=== PATIENT | female | born 1955 | race Caucasian/White ===

== ENCOUNTER 2016-12-22 18:05 | Emergency (ER) | payer OTHER ==
[2016-12-22 18:18] VITALS: RESP 16; TEMP 99.3
--- NOTE | 2016-12-22 18:19 | CPEKG ---
Heart Rate: 99 RR Interval: 606 P-R Interval: 136 QRSD Interval: 70 QT Interval: 320 QTC Interval: 411 P Otho: 48 QRS Otho: -49 T Wave Otho: 38 EKG Severity - ABNORMAL ECG - EKG Impression: SINUS RHYTHM EKG Impression: LEFT ANTERIOR FASCICULAR BLOCK Electronically Signed By: Todd Matthews 22-Dec-2016 21:05:00
--- NOTE | 2016-12-22 18:25 | EDPHY ---
H & P Time Seen by Provider: 12/22/16 18:06 HPI/ROS: Chief complaint. Syncope HPI. 61-year-old female, here by EMS, who has had headache and back pain for more than 2 weeks has had low energy for the last several days. She closed up the office today drove home. Due to fatigue and headache and back pain she stopped once on the way home. She did arrive home and the when out to see where the patient might be and found her lying on the sidewalk. She was awake. However she was dizzy and off balance. She had upper respiratory symptoms a week ago but no fever. She has had no cough or shortness of breath. She has had epigastric and left lower quadrant tenderness for more than 2 weeks. Today she feels like she was drinking a lot a water but not urinating. Her epigastric pain is not changed with breathing, movement, exertion, eating. She says slight blurry vision right eye for 2 weeks. She has had no recent injuries. No similar symptoms previously no focal weakness or paresthesias. EMS reported temperature of a 104 degrees ROS Constitutional. Weakness and fatigue Eyes. Blurry vision right eye for 2 weeks ENT. no sore throat, no nasal drainage Cardiovascular. no chest pain Respiratory. no shortness of breath, no cough Abdominal. Epigastric abdominal pain, no nausea/vomiting, no diarrhea . no problems urinating MS. no calf pain/swelling, no neck/back pain, no joint pain Skin. no rash Lymph. no swollen glands Neuro. Headache for 2 weeks and possible syncope today as well as dizziness and off balance Past Medical/Surgical History: Denies past medical history other than shoulder surgery Social History: , nonsmoker, no alcohol Smoking Status: Never smoked Physical Exam: General Appearance: Alert well-developed female no distress vital signs are stable Eyes: Pupils equal and round no pallor or injection. ENT, Mouth: Mucous membranes are moist. Respiratory: There are no retractions, lungs are clear to auscultation. Cardiovascular: Regular rate and rhythm. Gastrointestinal: Abdomen is soft and nontender, no masses, bowel sounds normal. Neurological: Awake and alert, sensory and motor exams grossly normal. Speech is normal. Cranial nerves are normal. There is no pronator drift. Finger-to- nose and [id number] are intact bilaterally Skin: Warm and dry, no rashes. Musculoskeletal: Neck is supple nontender. Extremities symmetrical, full range of motion. Psychiatric: Patient is oriented X 3, there is no agitation. Constitutional: Initial Vital Signs Temperature (C) 37.4 C 12/22/16 18:05 Heart Rate 98 12/22/16 18:05 Respiratory Rate 16 12/22/16 18:05 Blood Pressure 140/77 H 12/22/16 18:05 O2 Sat (%) 94 12/22/16 18:05 O2 Delivery Mode Room Air Allergies/Adverse Reactions: No Known Allergies Allergy (Unverified 12/22/16 18:13) Home Medications: Medication Instructions Recorded Cephalexin [Keflex (*)] 500 mg PO TID #21 cap 12/22/16 Multi-Vitamin Daily 12/22/16 VITAMIN B COMP W-C 12/22/16 VITAMIN D 12/22/16 Medical Decision Making - Diagnostics EKG Interpretation: EKG interpreted by me shows normal sinus rhythm with normal interval. There is left axis deviation left anterior fascicular block. QRS is unremarkable there is no significant ST elevation or depression. No arrhythmia. The rate is 99 Imaging Results: Imaging Impressions Head CT 12/22/16 18:45 Impression: 1. Normal CT brain without contrast. 2. No sinusitis. 3.Consider MRI of the brain without and with contrast enhancement, if there is continued clinical concern. Findings and recommendations discussed with Emergency Department physician, MAME MAGALLANES at 19:10 hour, 12/22/2016. Final report concurs with initial preliminary interpretation. Chest X-Ray 12/22/16 18:46 Impression: 1. No acute pulmonary disease. 2. Consider chest two views when the patient's medical condition permits. CT brain reviewed by me and discussed with Dr. Deal without contrast is normal Chest x-ray is normal Procedures: IV normal saline, monitor ED Course/Re-evaluation: Re-evaluation at 7:50 p.m.--stable and feeling better. The patient, her , and I discussed imaging and lab an EKG results. We discussed treatment plan including from criteria for return importance of follow-up and further evaluation. She expresses understanding and agreement I did offer the patient admission however she feels well and would prefer to be treated as an outpatient. She is encouraged to return at any point over the weekend for worsening symptoms Differential Diagnosis: A bit of an unusual story I do not really have explanation for her headache for greater than 2 weeks. I do not have a good reason why the patient had a syncopal or near syncopal episode and was lying on the sidewalk out in front of her house. I have considered arrhythmia, acute coronary syndrome, intracranial bleeding. The patient has a urinary tract infection. She is alert and oriented conversational. She has a normal neurologic exam. - Data Points Laboratory Results: Laboratory Results 12/22/16 18:10 12/22/16 18:10 12/22/16 12/22/16 12/22/16 19:05 18:10 18:10 WBC RBC Hgb Hct MCV MCH MCHC RDW Plt Count MPV Neut % (Auto) Lymph % (Auto) [place] % (Auto) Eos % (Auto) Baso % (Auto) Nucleat RBC Rel Count Absolute Neuts (auto) Absolute Lymphs (auto) Absolute Monos (auto) Absolute Eos (auto) Absolute Basos (auto) Absolute Nucleated RBC Immature Gran % Seg Neutrophils % Band Neutrophils % Lymphocytes % Monocytes % Metamyelocytes % Immature Gran # Absolute Seg Neuts Absolute Band Neuts Absolute Lymphocytes Absolute Monocytes Absolute Metamyelocyte RBC/WBC/PLT Morphology Platelet Estimate PT 14.0 SEC SEC (12.0-15.0) INR 1.09 (0.83-1.16) APTT 26.5 SEC SEC (23.0-38.0) Sodium 134 mEq/L mEq/L (134-144) Potassium 4.1 mEq/L mEq/L (3.5-5.2) Chloride 102 mEq/L mEq/L (97-110) Carbon Dioxide 19 mEq/l L mEq/l (22-31) Anion Gap 13 mEq/L mEq/L (8-16) BUN 16 mg/dL mg/dL (7-23) Creatinine 1.0 mg/dL mg/dL (0.6-1.0) Estimated GFR 57 Glucose 115 mg/dL H mg/dL (70-100) Calcium 9.7 mg/dL mg/dL (8.5-10.4) Troponin I < 0.012 ng/mL ng/mL (0-0.034) Lipase 35.0 IU/L IU/L (23-300) Urine Color YELLOW Urine Appearance HAZY Urine pH 7.0 (5.0-7.5) Ur Specific [place] 1.005 (1.002-1.030) Urine Protein NEGATIVE (NEGATIVE) Urine Ketones NEGATIVE (NEGATIVE) Urine Blood 2+ H (NEGATIVE) Urine Nitrate POSITIVE H (NEGATIVE) Urine Bilirubin NEGATIVE (NEGATIVE) Urine Urobilinogen NEGATIVE EU EU (0.2-1.0) Ur Leukocyte Esterase 3+ H (NEGATIVE) Urine RBC 3-5 /hpf H /hpf (0-3) Urine WBC 50-182 /hpf H /hpf (0-3) Ur Epithelial Cells NONE SEEN /lpf /lpf (NONE-1+) Urine Bacteria TRACE /hpf H /hpf (NONE SEEN) Urine Glucose NEGATIVE (NEGATIVE) Urine Opiates Screen NEGATIVE (NEGATIVE) Urine Barbiturates NEGATIVE (NEGATIVE) Ur Phencyclidine Scrn NEGATIVE (NEGATIVE) Ur Amphetamine Screen NEGATIVE (NEGATIVE) U Benzodiazepines Scrn NEGATIVE (NEGATIVE) Urine Cocaine Screen NEGATIVE (NEGATIVE) U Marijuana (THC) Screen NEGATIVE (NEGATIVE) 12/22/16 18:10 WBC 12.06 10^3/uL H 10^3/uL (3.80-9.50) RBC 4.29 10^6/uL 10^6/uL (4.18-5.33) Hgb 13.8 g/dL g/dL (12.6-16.3) Hct 38.7 % % (38.0-47.0) MCV 90.2 fL fL (81.5-99.8) MCH 32.2 pg pg (27.9-34.1) MCHC 35.7 g/dL g/dL (32.4-36.7) RDW 11.7 % % (11.5-15.2) Plt Count 341 10^3/uL 10^3/uL (150-400) MPV 9.8 fL fL (8.7-11.7) Neut % (Auto) 94.1 % H % (39.3-74.2) Lymph % (Auto) 4.9 % L % (15.0-45.0) [place] % (Auto) 0.5 % L % (4.5-13.0) Eos % (Auto) 0.0 % L % (0.6-7.6) Baso % (Auto) 0.3 % % (0.3-1.7) Nucleat RBC Rel Count 0.0 % % (0.0-0.2) Absolute Neuts (auto) 11.34 10^3/uL H 10^3/uL (1.70-6.50) Absolute Lymphs (auto) 0.59 10^3/uL L 10^3/uL (1.00-3.00) Absolute Monos (auto) 0.06 10^3/uL L 10^3/uL (0.30-0.80) Absolute Eos (auto) 0.00 10^3/uL L 10^3/uL (0.03-0.40) Absolute Basos (auto) 0.04 10^3/uL 10^3/uL (0.02-0.10) Absolute Nucleated RBC 0.00 10^3/uL 10^3/uL (0-0.01) Immature Gran % 0.2 % % (0.0-1.1) Seg Neutrophils % 77 % % Band Neutrophils % 16 % % Lymphocytes % 4 % % Monocytes % 1 % % Metamyelocytes % 2 % % Immature Gran # 0.03 10^3/uL 10^3/uL (0.00-0.10) Absolute Seg Neuts 9.29 10^/uL H 10^/uL (1.70-6.50) Absolute Band Neuts 1.93 10^3/uL H 10^3/uL (0.00-0.70) Absolute Lymphocytes 0.48 10^3/uL L 10^3/uL (1.00-3.00) Absolute Monocytes 0.12 10^3/uL L 10^3/uL (0.30-0.80) Absolute Metamyelocyte 0.24 10^3/mL H 10^3/mL (0.00-0.00) RBC/WBC/PLT Morphology NORMAL (NORMAL) Platelet Estimate ADEQUATE (ADEQ) PT INR APTT Sodium Potassium Chloride Carbon Dioxide Anion Gap BUN Creatinine Estimated GFR Glucose Calcium Troponin I Lipase Urine Color Urine Appearance Urine pH Ur Specific [place] Urine Protein Urine Ketones Urine Blood Urine Nitrate Urine Bilirubin Urine Urobilinogen Ur Leukocyte Esterase Urine RBC Urine WBC Ur Epithelial Cells Urine Bacteria Urine Glucose Urine Opiates Screen Urine Barbiturates Ur Phencyclidine Scrn Ur Amphetamine Screen U Benzodiazepines Scrn Urine Cocaine Screen U Marijuana (THC) Screen Medications Given: Discontinued Medications Sodium Chloride (Ns) 1,000 mls @ 0 mls/hr IV ONCE ONE; Wide Open PRN Reason: Protocol Stop: 12/22/16 18:47 Last Admin: 12/22/16 19:32 Dose: 1,000 mls Departure - Departure Disposition: Home, Routine, Self-Care Clinical Impression: Urinary tract infection Qualifiers: Urinary tract infection type: acute cystitis Hematuria presence: without hematuria Qualified Code(s): N30.00 - Acute cystitis without hematuria Condition: Good Instructions: Urinary Tract Infection in Women (ED) Additional Instructions: Drink plenty of fluids and stay hydrated. Start antibiotic prescription of cephalexin tomorrow. Return for worsening symptoms including further passing out episodes, worsening headache. Recheck in 2 days if not improving Referrals: Patient,NotPresent [Unknown] - As per Instructions Charles Gillette MD [Medical Doctor] - 2-3 days, if not improved Prescriptions: Cephalexin [Keflex (*)] 500 mg PO TID #21 cap
[2016-12-22] MEDS ORDERED: NS 1,000 ML IV ONE (18:46)
[2016-12-22 18:53] LABS: % IMMATURE GRANULYOCYTES 0.2 % (0.0-1.1); ABSOLUTE IMMATURE GRANULOCYTES 0.03 10^3/uL (0.00-0.10); ADD DIFF? NO; ADD MORPH? NO; ADD SCAN? YES; ATYPICAL LYMPHOCYTE FLAG 0 (0-99); FRAGMENT RBC FLAG 0 (0-99); HEMATOCRIT 38.7 % (38.0-47.0); HEMOGLOBIN 13.8 g/dL (12.6-16.3); LIPEMIA HEMOLYSIS FLAG 90 (0-99); MEAN CELL HEMOGLOBIN 32.2 pg (27.9-34.1); MEAN CELL HEMOGLOBIN CONCENTR. 35.7 g/dL (32.4-36.7); MEAN CELL VOLUME 90.2 fL (81.5-99.8); MEAN PLATELET VOLUME 9.8 fL (8.7-11.7); PLATELET CLUMPS FLAG 30 (0-99); PLATELET COUNT 341 10^3/uL (150-400); RED BLOOD CELL COUNT 4.29 10^6/uL (4.18-5.33); RED CELL DISTRIBUTION WIDTH 11.7 % (11.5-15.2)
[2016-12-22 18:54] LABS: LEFT SHIFT FLG 280 (0-99)
[2016-12-22 18:58] LABS: APTT 26.5 SEC (23.0-38.0); INR 1.09 (0.83-1.16)
[2016-12-22 19:06] LABS: ANION GAP 13 mEq/L (8-16); CALCIUM 9.7 mg/dL (8.5-10.4); CARBON DIOXIDE 19 mEq/l (22-31); CHLORIDE 102 mEq/L (97-110); GLOMERULAR FILTRATION RATE 57; GLUCOSE 115 mg/dL (70-100); POTASSIUM 4.1 mEq/L (3.5-5.2); SODIUM 134 mEq/L (134-144)
[2016-12-22 19:16] LABS: TROPONIN I < 0.012 ng/mL (0-0.034)
[2016-12-22 19:21] LABS: COLOR YELLOW; LEUKOCYTE ESTERASE,URINE 3+ (NEGATIVE); NITRITE,URINE POSITIVE (NEGATIVE)
[2016-12-22 19:27] LABS: BACTERIA TRACE /hpf (NONE SEEN); WBC,URINE 50-182 /hpf (0-3)
[2016-12-22 19:30] LABS: SCAN POSITIVE
[2016-12-22 19:33] LABS: PLATELET ESTIMATE ADEQUATE (ADEQ)
[2016-12-22 20:49] VITALS: BP 102/54; PULSE 99; O2SAT 93
== END 2016-12-22 20:49 | disposition home or self-care (01) ==
LOC: EDUNIT#
DX: N30.00 Acute cystitis without hematuria (principal); B96.89 Other specified bacterial agents as the cause of diseases classified elsewhere
CPT/HCPCS: 80305; 96365; J0696

== ENCOUNTER 2016-12-25 13:38 | Inpatient (IN) | payer OTHER ==
--- NOTE | 2016-12-25 13:45 | EDPHY ---
H & P Stated Complaint: pain has moved to rlq - Personal History Current Tetanus Diphtheria and Acellular Pertussis (TDAP): Yes - Medical/Surgical History Hx Asthma: No Hx Chronic Respiratory Disease: No Hx Diabetes: No Hx Cardiac Disease: No Hx Renal Disease: No Hx Cirrhosis: No Hx Alcoholism: No Hx HIV/AIDS: No Hx Splenectomy or Spleen Trauma: No Other PMH: l shoulder surgery - Social History Smoking Status: Never smoked Time Seen by Provider: 12/25/16 13:45 Constitutional: Initial Vital Signs Temperature (C) 37.2 C 12/25/16 13:42 Heart Rate 85 12/25/16 13:42 Respiratory Rate 16 12/25/16 13:42 Blood Pressure 152/92 H 12/25/16 13:42 O2 Sat (%) 97 12/25/16 13:42 O2 Delivery Mode Room Air Allergies/Adverse Reactions: Penicillins Allergy (Verified 12/25/16 13:44) Home Medications: Medication Instructions Recorded Cephalexin [Keflex (*)] 500 mg PO TID 12/25/16 Herbals/Supplements -Info Only 1 ea PO DAILY 12/25/16 Medical Decision Making - Diagnostics Imaging: Discussed imaging studies w/ call or contact centre team leader Radiologist, I viewed and interpreted images myself - Diagnostics Imaging Results: Imaging Impressions Abdomen CT 12/25/16 13:51 Impression: 1. Right-sided pyelonephritis with possible intrarenal abscesses. 2. 4-mm stone at the right ureterovesical junction with mild obstructive uropathy. 3. Tiny bilateral pleural effusions. 4. Left renal atrophy and cortical scarring. 5. Additional findings as above. Findings discussed with Serina Nelson, 12/25/2016 at 1525 hours. ED Course/Re-evaluation: CHIEF COMPLAINT: RLQ abdominal pain HISTORY OF PRESENT ILLNESS: The patient is a 61 y/o female arriving with her complaining of RLQ abdominal pain worsening today. She developed left flank pain a few days ago and was evaluated in the ED here on Sunday, 3 days ago , following a syncopal event. She had normal head and chest imaging and was diagnosed with a UTI and started on Keflex. She's had only minimal improvement since then and continues to have polyuria. Over the last day, her pain has shifted to her RLQ. She has difficulty describing her pain and says it feels "squirrely." She denies dysuria, vomiting, diarrhea, fever, or other complaints. No history of abdominal surgeries. She has had some ongoing back pain over the last couple weeks. REVIEW OF SYSTEMS: A 10 point review of systems was performed and is negative with the exception of the elements mentioned in the history of present illness. PHYSICAL EXAM: HR, BP, O2 Sat, RR. Temp noted General Appearance: Alert, well hydrated, appropriate, and non-toxic appearing. Head: Atraumatic without scalp tenderness or obvious injury Eyes: Pupils equal, round, reactive to light and accommodation, EOMI, no trauma , no injection. Nose: Atraumatic, no rhinorrhea, clear. Throat: Mucus membranes moist. Neck: Supple, nontender, no lymphadenopathy. Respiratory: No retractions, no distress, no wheezes, and no accessory muscle use. Lungs are clear to auscultation bilaterally. Cardiovascular: Regular rate and rhythm, no murmurs, rubs, or gallops. Good capillary refill all extremities. Gastrointestinal: Abdomen is soft, RLQ tenderness, non-distended, no masses, no rebound, no guarding, no peritoneal signs. Musculoskeletal: Normal active ROM of all extremities, atraumatic. Neurological: Alert, appropriate, and interactive. Nonfocal neuro exam. Skin: No rashes, good turgor, no nodules on palpation. Past medical history: Back pain Past surgical history: no abdominal surgeries Family history: noncontributory Social history: at bedside. Prior medical records reviewed including ED visit 12/22/16. DIFFERENTIAL DIAGNOSIS: The differential diagnosis for the patient's abdominal pain included but was not limited to ovarian cyst, pelvic inflammatory disease, ovarian torsion, urinary tract infection, ectopic , cholecystitis, and appendicitis. MEDICAL DECISION MAKING: This is a 61 y/o female with a recent UTI diagnosis who complains of worsening abdominal pain now localizing to her RLQ today. She has no significant urinary symptoms aside from some polyuria. She is moderately tender in her RLQ, but otherwise well-appearing. Plan for IV, labs, UA, symptomatic treatment, and abdominal CT to rule out appendicitis. 1mg IV Dilaudid, 30mg IV Toradol, 4mg IV Zofran, 1L IV NS administered. WBC 15, which has increased from her previous visit. UA indicates current UTI. Abdominal CT pending at shift change. Recommend surgical evaluation as well. Patient care transferred to Dr. Nelson at 15:00. (Kael Morris) Other Provider: I assumed care of this patient from Dr. Morris at 3:[address] scan shows 4 mm right ureteral stone with [id number] obstructive uropathy. He notes pyelonephritis involving the right kidney and a possible intrarenal abscess. I spoke with Dr. Lorenzo of Urology. He recommends ceftriaxone. This patient is being admitted to the hospitalist service. Dr. Lorenzo will see her as a leasing sales consultant. At the time of my interview and examination she has right-sided flank and mid to lower abdominal pain without guarding. She tells me that her pain is well controlled now that she has received Toradol. I note that her creatinine is 1.1. Prior to receiving the Toradol she describes a pain that was severe, particularly while walking. (Serina Nelson) - Data Points Laboratory Results: Laboratory Results 12/25/16 14:00 12/25/16 14:00 12/25/16 12/25/16 12/25/16 14:00 14:00 13:56 WBC 15.07 10^3/uL H 10^3/uL (3.80-9.50) RBC 3.96 10^6/uL L 10^6/uL (4.18-5.33) Hgb 12.7 g/dL g/dL (12.6-16.3) POC Hgb 13.3 gm/dL gm/dL (12.6-16.3) Hct 36.6 % L % (38.0-47.0) POC Hct 39 % % (38-47) MCV 92.4 fL fL (81.5-99.8) MCH 32.1 pg pg (27.9-34.1) MCHC 34.7 g/dL g/dL (32.4-36.7) RDW 11.9 % % (11.5-15.2) Plt Count 305 10^3/uL 10^3/uL (150-400) MPV 9.8 fL fL (8.7-11.7) Neut % (Auto) 84.3 % H % (39.3-74.2) Lymph % (Auto) 8.3 % L % (15.0-45.0) [place] % (Auto) 5.7 % % (4.5-13.0) Eos % (Auto) 0.3 % L % (0.6-7.6) Baso % (Auto) 0.3 % % (0.3-1.7) Nucleat RBC Rel Count 0.0 % % (0.0-0.2) Absolute Neuts (auto) 12.72 10^3/uL H 10^3/uL (1.70-6.50) Absolute Lymphs (auto) 1.25 10^3/uL 10^3/uL (1.00-3.00) Absolute Monos (auto) 0.86 10^3/uL H 10^3/uL (0.30-0.80) Absolute Eos (auto) 0.04 10^3/uL 10^3/uL (0.03-0.40) Absolute Basos (auto) 0.04 10^3/uL 10^3/uL (0.02-0.10) Absolute Nucleated RBC 0.00 10^3/uL 10^3/uL (0-0.01) Immature Gran % 1.1 % % (0.0-1.1) Immature Gran # 0.16 10^3/uL H 10^3/uL (0.00-0.10) POC Sodium 141 mEq/L mEq/L (134-144) Sodium 137 mEq/L mEq/L (134-144) POC Potassium 3.2 mEq/L L mEq/L (3.3-5.0) Potassium 3.5 mEq/L mEq/L (3.5-5.2) POC Chloride 104 mEq/L mEq/L (97-110) Chloride 104 mEq/L mEq/L (97-110) Carbon Dioxide 22 mEq/l mEq/l (22-31) Anion Gap 11 mEq/L mEq/L (8-16) POC BUN 13 mg/dL mg/dL (7-23) BUN 13 mg/dL mg/dL (7-23) Creatinine 1.1 mg/dL H mg/dL (0.6-1.0) POC Creatinine 1.2 mg/dL H mg/dL (0.6-1.0) Estimated GFR 51 Glucose 94 mg/dL mg/dL (70-100) POC Glucose 98 mg/dL mg/dL (70-100) Calcium 9.3 mg/dL mg/dL (8.5-10.4) Total Bilirubin 1.1 mg/dL mg/dL (0.1-1.4) Conjugated Bilirubin 0.5 mg/dL mg/dL (0.0-0.5) Unconjugated Bilirubin 0.6 mg/dL mg/dL (0.0-1.1) AST 41 IU/L IU/L (14-46) ALT 58 IU/L H IU/L (9-52) Alkaline Phosphatase 126 IU/L IU/L (38-126) Total Protein 6.2 g/dL L g/dL (6.3-8.2) Albumin 3.6 g/dL g/dL (3.5-5.0) Lipase 32.0 IU/L IU/L (23-300) Medications Given: Discontinued Medications Hydromorphone HCl (Dilaudid) 1 mg IVP EDNOW ONE Stop: 12/25/16 13:52 Last Admin: 12/25/16 14:19 Dose: Not Given Sodium Chloride (Ns) 1,000 mls @ 0 mls/hr IV ONCE ONE; Wide Open PRN Reason: Protocol Stop: 12/25/16 13:52 Last Admin: 12/25/16 14:18 Dose: 1,000 mls Ceftriaxone Sodium/Dextrose (Rocephin 1 Gm (Premix)) 50 mls @ 100 mls/hr IV EDNOW ONE PRN Reason: Protocol Stop: 12/25/16 16:31 Last Admin: 12/25/16 16:23 Dose: 50 mls Ketorolac Tromethamine (Toradol) 30 mg IVP EDNOW ONE Stop: 12/25/16 13:52 Last Admin: 12/25/16 14:19 Dose: 30 mg Ondansetron HCl (Zofran) 4 mg IVP EDNOW ONE Stop: 12/25/16 13:52 Last Admin: 12/25/16 14:19 Dose: 4 mg Point of Care Test Results: 12/25/16 13:56 POC Sodium 141 POC Potassium 3.2 L POC Chloride 104 POC BUN 13 POC Creatinine 1.2 H POC Glucose 98 Departure - Departure Disposition: [facility] Clinical Impression: Acute pyelonephritis, Renal colic on right side Condition: Good Report Scribed for: Kael Morris Report Scribed by: Claudia Kee Date of Report: 12/25/16 Time of Report: 13:54
[2016-12-25] MEDS ORDERED: ONDANSETRON 4 MG/2 ML VIAL IVP ONE (13:51)
[2016-12-25] MEDS ORDERED: HYDROmorphONE/DILAUDID 1 MG/ML SYR IVP ONE (13:51)
[2016-12-25] MEDS ORDERED: KETOROLAC 30 MG/1 ML SDV IVP ONE (13:51)
[2016-12-25] MEDS ORDERED: NS 1,000 ML IV ONE (13:51)
[2016-12-25 14:14] LABS: % IMMATURE GRANULYOCYTES 1.1 % (0.0-1.1); ABSOLUTE IMMATURE GRANULOCYTES 0.16 10^3/uL (0.00-0.10); ADD DIFF? NO; ADD MORPH? NO; ADD SCAN? NO; ATYPICAL LYMPHOCYTE FLAG 0 (0-99); FRAGMENT RBC FLAG 0 (0-99); HEMATOCRIT 36.6 % (38.0-47.0); HEMOGLOBIN 12.7 g/dL (12.6-16.3); LEFT SHIFT FLG 40 (0-99); LIPEMIA HEMOLYSIS FLAG 90 (0-99); MEAN CELL HEMOGLOBIN 32.1 pg (27.9-34.1); MEAN CELL HEMOGLOBIN CONCENTR. 34.7 g/dL (32.4-36.7); MEAN CELL VOLUME 92.4 fL (81.5-99.8); MEAN PLATELET VOLUME 9.8 fL (8.7-11.7); PLATELET CLUMPS FLAG 20 (0-99); PLATELET COUNT 305 10^3/uL (150-400); RED BLOOD CELL COUNT 3.96 10^6/uL (4.18-5.33); RED CELL DISTRIBUTION WIDTH 11.9 % (11.5-15.2)
[2016-12-25 14:15] LABS: COLOR YELLOW; LEUKOCYTE ESTERASE,URINE 2+ (NEGATIVE); NITRITE,URINE NEGATIVE (NEGATIVE)
[2016-12-25 14:19] LABS: BACTERIA TRACE /hpf (NONE SEEN)
[2016-12-25] MEDS ORDERED: IOPAMIDOL (ISOVUE-300) 100 ML BTL ONE (14:36)
[2016-12-25 14:45] LABS: ALANINE AMINOTRANSFERASE 58 IU/L (9-52); ALBUMIN 3.6 g/dL (3.5-5.0); ALKALINE PHOSPHATASE 126 IU/L (38-126); ANION GAP 11 mEq/L (8-16); ASPARTATE AMINOTRANSFERASE 41 IU/L (14-46); BILIRUBIN,TOTAL 1.1 mg/dL (0.1-1.4); BILIRUBIN-CONJUGATED 0.5 mg/dL (0.0-0.5); BILIRUBIN-UNCONJUGATED 0.6 mg/dL (0.0-1.1); CALCIUM 9.3 mg/dL (8.5-10.4); CARBON DIOXIDE 22 mEq/l (22-31); CHLORIDE 104 mEq/L (97-110); CREATININE 1.1 mg/dL (0.6-1.0); GLOMERULAR FILTRATION RATE 51; GLUCOSE 94 mg/dL (70-100); POTASSIUM 3.5 mEq/L (3.5-5.2); SODIUM 137 mEq/L (134-144); TOTAL PROTEIN 6.2 g/dL (6.3-8.2)
[2016-12-25] MEDS ORDERED: HYDROmorphONE/DILAUDID 1 MG/ML SYR IVP PRN (16:40)
[2016-12-25] MEDS ORDERED: ONDANSETRON 4 MG/2 ML VIAL IVP PRN (16:41)
[2016-12-25] MEDS ORDERED: ONDANSETRON DISINTEGRATING 4 MG TAB PO PRN (16:41)
--- NOTE | 2016-12-25 18:09 | GHP ---
[f rep st] HISTORY AND PHYSICAL DATE OF ADMISSION: 12/25/2016 CHIEF COMPLAINT: Pyelonephritis, renal abscess. HISTORY OF PRESENT ILLNESS: The patient is a pleasant 61-year-old female with no past medical history, who is presenting with right lower quadrant and flank pain. She was seen here in the emergency room at [facility] on 12/22 with fatigue, headache, and back pain. She had been complaining of left lower quadrant pain for more than 2 weeks at that visit. She was diagnosed with a UTI and discharged with Keflex. Since that visit, her symptoms have not improved. She states over the weekend she felt terrible with increased sharp right lower quadrant flank pain. She has had minimal oral intake since Sunday. Complains of subjective fevers, chills, and sweats. Has poor energy. Has also been constipated. She does report that it is easier to urinate since taking Keflex, and the pain in her left lower quadrant has improved. REVIEW OF SYSTEMS: I completed a 10-point review of systems, negative except as noted in HPI. PAST MEDICAL HISTORY: None. PAST SURGICAL HISTORY: Shoulder surgery. ALLERGIES: Penicillin, itchiness. SOCIAL HISTORY: Lives in [place] with her , has 1 child. No drugs, alcohol, or illicits. FAMILY HISTORY: Father passed of Parkinson's. Mother passed of a CVA. HOME MEDICATIONS: Vitamin D, vitamin B, multivitamin daily, Keflex since 2016. PHYSICAL EXAMINATION: VITAL SIGNS: Temperature 37.2, blood pressure 152/92, heart rate 80s, respirations 16, 97% on room air. GENERAL: The patient is lying in bed, in no acute distress. Very pleasant. HEENT: PERRLA. EOMI. Mildly dry mucous membranes. CV: Regular rate and rhythm. No murmurs, gallops , or rubs. LUNGS: Clear to auscultation. No crackles or wheezing. ABDOMEN: Soft, nondistended. No tenderness. Positive bowel sounds. : Right suprapubic tenderness with palpation. No CVA tenderness bilaterally. NEURO: 2 through 12 intact. PSYCH: Alert and oriented x3. MUSCULOSKELETAL: 5/5 upper and lower extremity strength. LABORATORY DATA: WBCs 15, hemoglobin 12, hematocrit 36, platelets 305. Sodium 141, potassium 3.2, chloride 104, BUN 13, creatinine 1.2 (baseline 0.8), glucose 98, AST 41, ALT 58, total protein 6.2, albumin 3.6, lipase 32. UA: +2 leukocyte esterase, 10-15 WBCs, down to 50 from 188 on the 23rd. Urine culture is pending. Abdominal CT: Right-sided pyelonephritis with possible intrarenal abscess. Abscess measuring 1.8 x 1.3 cm in the anterior right kidney. There is moderate obstructive uropathy secondary to 4 mm stone at the right ureteral vesicular junction. ASSESSMENT AND PLAN: 1. Right-sided pyelonephritis with possible intrarenal abscess: failed outpatient antibiotics, likely did not receive care soon enough. Treat with IV abx and if no improvement, consider drainage. Culture pending. Dr. Lorenzo with Urology will evaluate. 2. Right ureterovesical junction stone with mild obstructive uropathy: Urology to evaluate. Low-dose Dilaudid for pain control with mild acute kidney injury. 3. Acute kidney injury. suspect secondary to ureterovesical junction stone and decreased p.o. intake. Hydrate with IV fluids. Avoid nephrotoxic agents. Repeat BMP in the morning. 4. Leukocytosis: due to above. Continue IV ceftriaxone and a urine culture is pending. Afebrile. 5. Hypokalemia: will replete. 6. Deep venous thrombosis prophylaxis. Subcutaneous heparin. 7. Diet: Regular. DISPOSITION: The patient warrants inpatient admission given acute pyelonephritis/renal abscess warranting IV antibiotic and urologic consultation. /[id number]/MODL MTDD
[2016-12-25] MEDS: NS 1,000 ML IV SCH (18:10)
[2016-12-25] MEDS: TAMSULOSIN HCL 0.4 MG CAP PO SCH (20:54)
[2016-12-25] MEDS ORDERED: HEPARIN 5,000 UNIT/0.5 ML SYR SC SCH (22:00)
[2016-12-26] MEDS: ACETAMINOPHEN 325 MG TAB PO PRN ×3 (03:01→14:03)
[2016-12-26 05:24] LABS: HEMOGLOBIN 10.9 g/dL (12.6-16.3); MEAN CELL HEMOGLOBIN 32.7 pg (27.9-34.1); MEAN CELL HEMOGLOBIN CONCENTR. 35.2 g/dL (32.4-36.7); MEAN CELL VOLUME 93.1 fL (81.5-99.8); RED BLOOD CELL COUNT 3.33 10^6/uL (4.18-5.33)
[2016-12-26 05:43] LABS: ANION GAP 14 mEq/L (8-16); CALCIUM 8.5 mg/dL (8.5-10.4); CARBON DIOXIDE 19 mEq/l (22-31); CHLORIDE 105 mEq/L (97-110); GLOMERULAR FILTRATION RATE 57; GLUCOSE 103 mg/dL (70-100); POTASSIUM 3.7 mEq/L (3.5-5.2); SODIUM 138 mEq/L (134-144)
[2016-12-26] MEDS ORDERED: SENNOSIDES/DOCUSATE SODIUM TAB PO PRN (06:29)
[2016-12-26] MEDS: TAMSULOSIN HCL 0.4 MG CAP PO SCH (08:31)
--- NOTE | 2016-12-26 14:39 | SOAPPROG ---
SOAP Progress Note Assessment/Plan: Assessment: Pt. with distal right ureteral stone and possibly associated pyelonephritis. Plan: Tentatively planning on intraoperative ureteroscopy and stone extraction with stent placement later this afternoon. Full consult note to follow (Dict. # [id number]). Subjective: According to nurse, pt. has been pain-free this afternoon, but no stone has been strained to this point during her hospitalization. Objective: Vital Signs Temp Pulse Resp BP Pulse Ox 36.8 C 70 14 111/70 95 12/26/16 11:12 12/26/16 11:12 12/26/16 11:12 12/26/16 11:12 12/26/16 11:12 Laboratory Results 12/26/16 04:49 12/26/16 04:49 12/25/16 12/26/16 12/27/16 05:59 05:59 05:59 Intake Total 1000 Output Total 400 Balance 600 ICD10 Worksheet Patient Problems: Problems Problem Status Onset Acute pyelonephritis Acute Renal colic on right side Acute
--- NOTE | 2016-12-26 15:24 | HOSPPROG ---
Hospitalist Progress Note Assessment/Plan: * Obstructing kidney stone 4mm -to OR with urology today * Intra-renal abscess associated with obstruction -consult ID * Pyelonephritis with sepsis -IV Ceftriaxone pending culture -culture may be negative as was on PO keflex * Hypokalemia -better post repletion Subjective: No pain today Objective: Vital Signs Temp Pulse Resp BP Pulse Ox 36.8 C 70 14 111/70 95 12/26/16 11:12 12/26/16 11:12 12/26/16 11:12 12/26/16 11:12 12/26/16 11:12 Laboratory Results 12/26/16 04:49 12/26/16 04:49 12/25/16 12/26/16 12/27/16 05:59 05:59 05:59 Intake Total 1000 Output Total 400 300 Balance 600 -300 - Physical Exam Constitutional: no apparent distress, appears nourished, not in pain Cardiovascular: regular rate and rhythym, no murmur, rub, or gallop Respiratory: no respiratory distress, no rales or rhonchi, clear to auscultation Gastrointestinal: normoactive bowel sounds, soft, non-tender abdomen, no palpable masses Skin: no rashes or abrasions, no fluctuance, no induration Neurologic: AAOx3, sensation intact bilaterally Psychiatric: interacting appropriately, not anxious, not encephalopathic, thought process linear ICD10 Worksheet Patient Problems: Problems Problem Status Onset Acute pyelonephritis Acute Renal colic on right side Acute
[2016-12-26] MEDS ORDERED: LR 1,000 ML IV ONE (16:17)
--- NOTE | 2016-12-26 17:13 | PDANEPAE ---
ANE History of Present Illness kidney stone on R ANE Past Medical History - Cardiovascular History Hx Hypertension: No Hx Arrhythmias: No Hx Chest Pain: No Hx Coronary Artery / Peripheral Vascular Disease: No Hx CHF / Valvular Disease: No Hx Palpitations: No - Pulmonary History Hx COPD: No Hx Asthma/Reactive Airway Disease: No Hx Recent Upper Respiratory Infection: No Hx Oxygen in Use at Home: No - Endocrine History Hx Diabetes: No Hypothyroid: No Hyperthyroid: No - Renal History Hx Renal Disorders: Yes - Liver History Hx Hepatic Disorders: Yes - Neurological & Psychiatric Hx Hx Neurological and Psychiatric Disorders: Yes - Cancer History Hx Cancer: No - Congenital Disorder History Hx Congenital Disorders: No - GI History Hx Gastrointestinal Disorders: No - Chronic Pain History Chronic Pain: No ANE Review of Systems - Exercise capacity Exercise capacity: >=4 METS - Systems Genitourinary: Reports: flank pain (kidney stone) ANE Patient History - Allergies Allergies/Adverse Reactions: Penicillins Allergy (Verified 12/25/16 13:44) - Home Medications Home Medications: Cephalexin [Keflex (*)] 500 mg PO TID 12/25/16 [Last Taken 12/25/16 1 cap] Herbals/Supplements -Info Only 1 ea PO DAILY 12/25/16 [Last Taken Unknown] - NPO status NPO Since - Liquids (Date): 12/26/16 NPO Since - Liquids (Time): 00:00 NPO Since - Solids (Date): 12/26/16 NPO Since - Solids (Time): 00:00 - Anes Hx Anes Hx: post operative nausea - Smoking Hx Smoking Status: Never smoked Marijuana use: No - Alcohol Use Alcohol Use: Occasionally (one drink per week) ANE Labs/Vital Signs - Labs Result Diagrams: 12/26/16 04:49 12/26/16 04:49 - Vital Signs Blood Pressure: 124/80 Heart Rate: 79 Respiratory Rate: 16 O2 Sat (%): 94 Height: 149.86 cm Weight: 55.4 kg ANE Physical Exam - Airway Neck exam: FROM Mouth exam: normal dental/mouth exam (L upper cap) - Pulmonary Pulmonary: clear to auscultation - Cardiovascular Cardiovascular: regular rate and rhythym - ASA Status ASA Status: II ANE Anesthesia Plan Anesthesia Plan: GA w LMA
[2016-12-26] MEDS ORDERED: MIDAZOLAM 2 MG/2 ML VIAL IVP ONE (17:21)
[2016-12-26] MEDS ORDERED: SCOPOLAMINE HYDROBROMIDE 1.5 MG PATCH TD ONE ×2 (17:22→17:37)
[2016-12-26] MEDS ORDERED: fentaNYL 100 MCG/2 ML INJ ONE ×2 (17:29)
[2016-12-26] MEDS ORDERED: PROPOFOL 200 MG/20 ML VIAL ONE (17:30)
[2016-12-26] MEDS ORDERED: DEXAMETHASONE 4 MG/ML VIAL ONE (17:32)
[2016-12-26] MEDS ORDERED: LIDOCAINE 2% JELLY 20 ML (UROJECT) ONE (17:47)
[2016-12-26] MEDS ORDERED: IOPAMIDOL (ISOVUE-M 200) 20 ML VIAL ONE (18:37)
[2016-12-26] MEDS ORDERED: IOPAMIDOL (ISOVUE-M 300) 15 ML VIAL ONE ×2 (18:37→18:41)
[2016-12-26] MEDS ORDERED: IOPAMIDOL (ISOVUE-370) 150 ML BTL IV ONE (18:46)
[2016-12-26] MEDS ORDERED: IOPAMIDOL (ISOVUE-300) 150 ML BTL ONE (18:46)
[2016-12-26] MEDS ORDERED: NALOXONE HCL 0.4 MG/ML INJ IVP PRN (19:13)
[2016-12-26] MEDS ORDERED: fentaNYL 100 MCG/2 ML INJ IVP PRN (19:13)
[2016-12-26] MEDS ORDERED: ONDANSETRON 4 MG/2 ML VIAL ONE (19:19)
[2016-12-26] MEDS ORDERED: PHENYLEPHRINE HCL 100 MCG/ML SYR ONE (19:19)
[2016-12-26] MEDS ORDERED: KETOROLAC 30 MG/1 ML SDV ONE (19:19)
--- NOTE | 2016-12-26 19:26 | POSTANESTH ---
Post Anesthetic Evaluation Cardiovascular Status: Normal, Stable Respiratory Status: Normal, Stable Level of Consciousness/Mental Status: Can Participate in Eval Pain Control: Adequate, Prn Tx Ordered Nausea/Vomiting Control: Adequate, Prn Tx Ordered Complications Possibly Related to Anesthesia: None Noted
--- NOTE | 2016-12-26 19:32 | POSTOPPROG ---
Post Op Note Date of Operation: 12/26/16 Surgeon: Ivy Rosenthal (# [id number]) Anesthesia: LMA Pre-op Diagnosis: Distal right ureteral calculus Post-op Diagnosis: Distal right ureteral calculus Procedure: Right ureteroscopy w/ laser lithotripsy, ureteral stent placemenet Findings: See op note Inf/Abcess present in the surg proc area at time of surgery?: No EBL: Minimal Complications: None Specimen(s): Right ureteral calculus Text Box - Additional Text Additional Text: To RR in stable condition. Continue to monitor in hospital this evening. If she does well overnight then she may discharged on either levaquin 500/750 mg daily or Cipro 500 mg BID for 2 weeks. She should return to my office in 2 weeks for ureteral stent removal.
[2016-12-26] MEDS: PHENAZOPYRIDINE HCL 200 MG TAB PO SCH ×2 (20:47→22:22)
[2016-12-26] MEDS: NS 1,000 ML IV SCH (20:48)
--- NOTE | 2016-12-26 21:13 | GCON ---
[f rep st] CONSULTATION DATE OF CONSULTATION: 12/26/2016 REFERRING PHYSICIAN: [facility] REASON FOR CONSULTATION: Right ureteral calculus, possible renal abscess. HISTORY: This is a 61-year-old woman who presented to the emergency room yesterday evening with an at least 2-week history of right lower quadrant abdominal pain, for which she was diagnosed with a UTI and given Keflex after being seen in the emergency room on 12/22. She did not improve despite Keflex, and returned to the emergency room on 12/25. CT scan was performed at that time which revealed a possible renal abscess (per radiology report) and a distal right ureteral calculus. The patient denies any preceding dysuria, gross hematuria, or changes in her voiding pattern. She was experiencing subjective unmeasured fevers along with chills and night sweats, along with generalized malaise prior to admission. Since admission, she has improved but continues to have some intermittent right flank and lower quadrant abdominal pain. Urine has been strained by the nursing staff and presumably no stone has been retrieved to this point. PAST MEDICAL HISTORY: Healthy. She did have 1 prior kidney stone in approximately the early . She denies any history of urinary tract infections. PAST SURGICAL HISTORY: Includes minor shoulder surgery as well as pilonidal cystectomy. ADMISSION MEDICATIONS: Include Keflex (started on 12/22) and multivitamins. ALLERGIES: Penicillin causes possible itching. FAMILY HISTORY: Noncontributory. Specifically, no kidney stones to her knowledge. SOCIAL HISTORY: The patient is to [place] and lives in the [facility]. She denies use of tobacco and alcohol products. She has 1 child who was delivered vaginally. REVIEW OF SYSTEMS: Unremarkable, other than mentioned above in the HPI and past medical history. PHYSICAL EXAMINATION: GENERAL: Well-developed, well-nourished white female lying supine in bed, in no acute distress presently. VITAL SIGNS: Blood pressure 124/80, pulse 79, respirations 16, oxygen saturation 94% on room, temperature 37.2 Celsius. This compares to a temperature of 38.1 at 3:39 a.m. today and 38.8 at 11:45 p.m. yesterday. She has otherwise been afebrile since hospital admission. Height 150 cm, weight 55 kg, BMI 24.7. HEENT: Normocephalic, atraumatic. NECK: Supple. HEART: Regular rate. CHEST: Unlabored respiratory pattern. ABDOMEN: Soft with mild right lower quadrant tenderness to deep palpation. No peritoneal signs. No involuntary guarding. BACK: Mild right CVA tenderness to percussion. EXTREMITIES: Warm without cyanosis, clubbing, or edema. VASCULAR: Normal femoral, dorsalis pedis, and posterior tibial pulses bilaterally. NEUROLOGIC: She is alert and oriented. She answers all questions appropriately with normal mood and affect. RADIOGRAPHIC STUDIES: Iodinated abdominopelvic CT scan done yesterday: Upon my review, notable for diffuse decrease in renal perfusion. There is moderate right hydronephrosis and hydroureter down to an approximately 4 x 5 x 5 mm long distal ureteral calculus. There is no other renal stone disease appreciated. The left kidney was noted to be atrophic with moderate cortical thinning. The Radiology report reveals possible intrarenal abscess; however, I do not appreciate this on my interpretation. LABORATORY: CBC today notable for white blood cell count of 11,500, compared to 15,000 yesterday. Chemistry panel today is normal with creatinine 1.0 ( compared to 1.2 on 12/25). 12/25 urinalysis reveals 10-15 white blood cells and 2+ leukocyte esterase. Urine culture has been obtained and results are no growth after 18 hours preliminary. 12/22 urinalysis was nitrite positive with 50-182 white blood cells, and 3-5 red blood cells per high-power field. However , urine culture was not performed at that time. IMPRESSION: 1. Symptomatic distal right ureteral calculus. 2. Persistent urinary tract infection with possible early pyelonephritis. I do not appreciate any evidence of abscess. I had a prolonged discussion with the patient and her today regarding her urinary tract presenting issues. Management options for her stone would include ureteroscopy with attempted calculus management and stent placement versus temporary nephrostomy tube. Each option was compared and contrasted in detail. All questions were answered as well. PLAN: 1. Will proceed with intraoperative ureteroscopy and calculus management this afternoon. Risks associated with this procedure would include inability to find the calculus, inability to remove existing calculus, worsening urinary tract infection, urinary tract scarring, and side effects related to indwelling ureteral stent. 2. Continue with Rocephin intravenously. If her cultures do not reveal any localizing growth, then I would suggest that she be discharged on an oral quinolone for 2 weeks, either Levaquin daily or Cipro b.i.d. Thank you for this consultation. /[id number]/MODL MTDD
--- NOTE | 2016-12-27 05:54 | GOP ---
[f rep st] OPERATIVE REPORT DATE OF OPERATION: 12/26/2016 SURGEON: Ivy Rosenthal MD ANESTHESIA: Laryngeal mask. PREOPERATIVE DIAGNOSIS: 1. Symptomatic distal right ureteral calculus. 2. Urinary tract infection with probable pyelonephritis. POSTOPERATIVE DIAGNOSIS: 1. Symptomatic distal right ureteral calculus. 2. Urinary tract infection with probable pyelonephritis. PROCEDURE PERFORMED: 1. Cystourethroscopy, right retrograde pyelography. 2. Right ureteroscopy with Holmium laser of calculus, lithotripsy, and basket extraction. 3. Right ureteral stent placement (4.7-Prydeinig by 24 cm). FINDINGS: Distal right ureteral calculus. No evidence of significantly infected urine appreciated during the operative procedure today. SPECIMENS: Right ureteral calculus. ESTIMATED BLOOD LOSS: Minimal. INDICATIONS: This woman was admitted with symptoms related to worsening urinary tract infection as well as a distal right ureteral calculus, which she has been unable to pass spontaneously. It was recommended that she undergo intraoperative management of an upper ureteral stone at this time. The indications for the procedures as well as potential risks and complications were discussed with the patient preoperatively. She appeared to understand, her questions were answered, and she wished to proceed. Written informed surgical consent was thereafter obtained. DESCRIPTION OF PROCEDURE: The patient was brought to the operating room and administered laryngeal mask anesthesia. She was carefully placed in the dorsal lithotomy position on the cystoscopic table. The genital area was sterilely prepped with Betadine scrub and paint, then draped in the usual sterile fashion. Cystoscopy was performed with the 30-degree lens through a 22-Prydeinig sheath. Before doing so, the urethra did require dilation with Harjit sounds up to 24-Prydeinig. The bladder was otherwise unremarkable. Ureteral orifices were normal in regards to shape and position along the trigone. A 5-Prydeinig open -ended ureteral catheter was used to perform gentle retrograde pyelography on the right side. This revealed a filling defect at the ureterovesical junction with moderate proximal hydronephrosis and hydroureter. No other intraluminal defects were obviously identified. I then passed a 0.035 inch, angle-tipped hydrophilic guidewire up the right ureter, with the aid of the 5-Prydeinig open- ended ureteral catheter, until the proximal aspect of the guidewire was seen within the renal collecting system fluoroscopically. A 4 cm balloon was then used to dilate the distal ureter by maintaining a pressure of 16 atmospheres for about 4 minutes. The balloon dilator and cystoscope were then removed while keeping the guidewire in place. Semi-rigid ureteroscopy was performed alongside the guidewire. The calculus was seen within the distal ureter, and a 365 micron Holmium laser fiber used to fragment the calculus into 2 pieces which were extracted with a zero-tip stone basket unremarkably and sent to Pathology for chemical analysis. No other abnormalities were seen within the ureter, other than dilatation, when the ureteroscope was reinserted and advanced proximally all the way to the ureteropelvic junction. The ureteroscope was then removed and the cystoscope was backloaded over the guidewire. A 4.7-Prydeinig by 24 cm hydrophilic ureteral stent was advanced over the guidewire until it was properly positioned as seen fluoroscopically in the kidney and cystoscopically in the bladder. The bladder was then drained of all return, which was relatively clear. The instruments were removed, and 20 cc of 2% lidocaine injected transurethrally for postoperative analgesic purposes, along with 30 mg of Toradol intravenously administered by Anesthesia for postoperative pain control as well. The patient was then awakened, transferred to her bed, then taken to the recovery room. She tolerated the procedure well overall. COMPLICATIONS: None. DISPOSITION: She was transferred to the recovery in stable condition. She will be taken back to her hospital room and should spend the night tonight to ensure she does not develop a worsening urinary tract infection. Assuming she does well overnight, she should be discharged on 2 weeks of oral quinolone of choice, then follow up in my office in approximately 2 weeks for ureteral stent removal. /[id number]/MODL MTDD
[2016-12-27 06:47] LABS: ANION GAP 11 mEq/L (8-16); CALCIUM 8.6 mg/dL (8.5-10.4); CARBON DIOXIDE 17 mEq/l (22-31); CHLORIDE 113 mEq/L (97-110); GLOMERULAR FILTRATION RATE 57; GLUCOSE 118 mg/dL (70-100); POTASSIUM 4.8 mEq/L (3.5-5.2); SODIUM 141 mEq/L (134-144)
[2016-12-27] MEDS: PHENAZOPYRIDINE HCL 200 MG TAB PO SCH ×2 (07:27→15:13)
[2016-12-27 08:01] VITALS: RESP 16
[2016-12-27 08:37] LABS: % IMMATURE GRANULYOCYTES 0.7 % (0.0-1.1); ABSOLUTE IMMATURE GRANULOCYTES 0.06 10^3/uL (0.00-0.10); ADD DIFF? NO; ADD MORPH? NO; ADD SCAN? NO; ATYPICAL LYMPHOCYTE FLAG 10 (0-99); FRAGMENT RBC FLAG 0 (0-99); HEMATOCRIT 31.5 % (38.0-47.0); HEMOGLOBIN 11.1 g/dL (12.6-16.3); LEFT SHIFT FLG 0 (0-99); LIPEMIA HEMOLYSIS FLAG 90 (0-99); MEAN CELL HEMOGLOBIN 32.3 pg (27.9-34.1); MEAN CELL HEMOGLOBIN CONCENTR. 35.2 g/dL (32.4-36.7); MEAN CELL VOLUME 91.6 fL (81.5-99.8); MEAN PLATELET VOLUME 10.3 fL (8.7-11.7); PLATELET CLUMPS FLAG 0 (0-99); PLATELET COUNT 299 10^3/uL (150-400); RED BLOOD CELL COUNT 3.44 10^6/uL (4.18-5.33); RED CELL DISTRIBUTION WIDTH 11.9 % (11.5-15.2)
[2016-12-27 12:29] VITALS: BP 126/76; PULSE 55; TEMP 98.7; O2SAT 93
[2016-12-27] MEDS ORDERED: ALTEPLASE 2 MG VIAL IVP PRN (13:12)
--- NOTE | 2016-12-27 13:14 | PDIAF ---
- Diagnosis Code Status: Full Code - Medication Management Discharge Medications: Medications to Continue on Transfer Cephalexin [Keflex (*)] 500 mg PO TID 12/25/16 [Last Taken 12/25/16 1 cap] Herbals/Supplements -Info Only 1 ea PO DAILY 12/25/16 [Last Taken Unknown] Civil Engineering Design Draftsperson Antibiotics: ceftriaxone 1g IV q 24 hours Longterm Antibiotic Stop Date: 01/09/17 Discharge Medications: Refer to the Discharge Home Medication list for PRN reason. PICC Care - Routine: Yes - Orders Services needed: Registered Nurse - Labs/Radiology CBC Date: 01/01/17 CMP Date: 01/01/17 Call or Fax Lab and Imaging Results to: Dr. Kael Austin - Follow Up Care Current Providers and Referrals: NONE *PRIMARY CARE P,. [Primary Care Provider] - As per Instructions
--- NOTE | 2016-12-27 13:39 | PDIAF ---
- Diagnosis Diagnosis: pyelo with renal abscess Code Status: Full Code - Medication Management Discharge Medications: Medications to Continue on Transfer Herbals/Supplements -Info Only 1 ea PO DAILY 12/25/16 [Last Taken Unknown] cefTRIAXone 1 GM/DEXTROSE [Rocephin 1 gm (Premix)] 1 gm IV DAILY #14 bag [Last Taken Unknown] Satellite Installation Technician Antibiotics: ceftriaxone 1g IV q 24 hours Alf Antibiotic Stop Date: 01/09/17 Discharge Medications: Refer to the Discharge Home Medication list for PRN reason. PICC Care - Routine: Yes - Orders Services needed: Registered Nurse Diet Recommendation: no restrictions on diet - Labs/Radiology CBC Date: 01/01/17 CMP Date: 01/01/17 Call or Fax Lab and Imaging Results to: Dr. aKel Austin - Follow Up Care Current Providers and Referrals: NONE *PRIMARY CARE P,. [Primary Care Provider] - As per Instructions
[2016-12-27] MEDS: ACETAMINOPHEN 325 MG TAB PO PRN (15:13)
--- NOTE | 2016-12-27 17:05 | GDS ---
[f rep st] DISCHARGE SUMMARY DISCHARGE DIAGNOSES: 1. Pyelonephritis, with renal abscess. 2. Obstructing kidney stone, status post surgical removal. HISTORY: The patient is a 61-year-old female who presented with right lower quadrant and right flan k pain. She was previously seen in the ER, and diagnosed with a urinary tract infection and given K eflex. Her symptoms did not improve, so she returned to the ER. Imaging revealed a 4-mm proximal k idney stone, and a possible pyelonephritis, with probable intrarenal abscess. Urology was consulted , and she went to surgery, and had a laser lithotripsy, with a right ureteral stent placed by Dr. Me de santiago. Infectious Disease was consulted regarding her renal abscesses, and Dr. Austin felt she neede d discharged on IV antibiotics. She has a history of adverse reaction to ciprofloxacin. Urine cult ure is pending because it was performed while she had already been on Keflex for multiple days. The ER did not send a culture at time of her initial antibiotic initiation. Since she is doing well on cephalosporins, we will discharge on IV ceftriaxone to complete 14 days of therapy. DISCHARGE MEDICATIONS: Please see computerized record for full detailed list. New medications: Ceftriaxone 1 g IV daily for 14 days. ADDITIONAL DISCHARGE INSTRUCTIONS: 1. Follow up with Dr. Rosenthal. 2. Follow up with Dr. Austin. 3. Home Health for IV antibiotics and PICC line care. Greater than 30 minutes' time was spent arranging this discharge. Patient was seen and examined by me on the day of discharge. /[id number]/MODL
--- NOTE | 2016-12-28 05:53 | GCON ---
[f rep st] CONSULTATION INFECTIOUS DISEASE CONSULTATION REFERRING PHYSICIAN: Alisha Bennett MD. REASON FOR REFERRAL: Right-sided pyelonephritis, possible renal abscess. HISTORY OF PRESENT ILLNESS: Patient is a 61-year-old female who was seen in the emergency room and admitted on 12/25/2016. The patient had complained of right lower quadrant abdominal pain. She rec eived a CT scan of her abdomen and pelvis on that same day, which showed right-sided pyelonephritis with possible intrarenal abscess. It also showed a 4 mm stone at the right ureterovesical junction with obstructive uropathy. The patient was admitted and placed on IV antibiotic. Ceftriaxone was c hosen. Urology was consulted. The patient underwent a right ureteroscopy with laser lithotripsy on 12/26/2016. There were no complications. The patient continues on IV ceftriaxone. She is stable clinically for discharge, and we are consulted to help determine correct method of antibiotic delive ry. The patient relates that she feels well. She states that she had been taking oral Keflex prior to the admission. No cultures have revealed a pathogen during this episode. The patient states th at she had experience with ciprofloxacin 23 years ago around a previous kidney stone and that it cau sed her significant neurocognitive symptoms. PAST MEDICAL HISTORY: None. PAST SURGICAL HISTORY: Status post shoulder surgery. ANTIBIOTICS: Ceftriaxone. ALLERGIES: Penicillin. SOCIAL HISTORY: Patient is . She lives in [place]. The patient admits to no tobacco, alc ohol, or drug use. FAMILY HISTORY: Reviewed but noncontributory. REVIEW OF SYSTEMS: Other than that detailed above in history of present illness, a comprehensive 10 -system review was negative. PHYSICAL EXAMINATION: VITAL SIGNS: Temperature maximum is 37.2. Temperature current is 37.1. Hea rt rate is 55. Respiratory rate is 16. Blood pressure is 126/76. GENERAL: The patient is a well- formed, well-nourished, middle-aged female in no acute distress. She is not toxic in appearance. S he is alert and oriented x3. She has a pleasant demeanor. HEENT: Normocephalic for age. Atraumat ic. No scleral icterus. Eyes: Lids and conjunctivae within normal limits. Pupils are equal and r ound bilaterally. HEART: Regular rate and rhythm. No significant peripheral edema. LUNGS: Clear to auscultation. Good effort. SKIN: Warm and dry to the touch. No rash or lesion. NEURO: Cran ial nerves 2-12 seem to be intact. LABORATORY DATA: Patient has a CBC dated 12/27/2016, which showed a white blood cell count of 8.44, hemoglobin of 11.1, hematocrit of 31.5, and a platelet count of 299. Differential is somewhat left shifted with 77% segmented neutrophils. Serum chemistries on 12/27/2016 show sodium 141, potassium 4.8, chloride of 113, bicarbonate 17. BUN of 16, and creatinine of 1.0. Urinalysis on December 25 raven ws 10-15 white blood cells per high-power field. MICROBIOLOGIC DATA: The patient has a urine culture dated 12/25/2016, which shows no growth to date . ASSESSMENT: Postobstructive urinary tract infection and pyelonephritis with phlegmon in the right k idney. Review of the CT scan did not demonstrate a thick-walled cheli abscess, but it is close in e volution to this. It would, therefore, be reasonable to want to have a high level of antibiotic in circulation that concentrates well in the kidneys in order to effectively treat this. Fluoroquinolo karel could qualify; however, the patient had a negative reaction to fluoroquinolones 20 years ago, I do not suspect that this will improve if she is exposed this time. Instead, we will continue to uti lize the IV ceftriaxone once daily. We will set this up at home. We will place a PICC line in the patient and discharge her after home IV antibiotics are set up. PLAN: 1. Continue IV ceftriaxone. 2. Place a PICC line. 3. Arrange for home IV antibiotics. Anticipate a 2-week duration. 4. Follow up in clinic in approximately 1 week's time. /[id number]/MODL
== END 2016-12-27 16:40 | disposition home health service (06) | DRG 668 ==
LOC: OBSVTOIN 16:28 → F3E 17:51
PROVIDERS: ADMIT Internal Medicine; ATTEND Internal Medicine
PROC: 0T768DZ Dilation of Right Ureter with Intraluminal Device, Via Natural or Artificial Opening Endoscopic (ICD-10-PCS; principal; 2016-12-26 16:30)
PROC: 0TC68ZZ Extirpation of Matter from Right Ureter, Via Natural or Artificial Opening Endoscopic (ICD-10-PCS; principal; 2016-12-26 16:30)
PROC: 02HV33Z Insertion of Infusion Device into Superior Vena Cava, Percutaneous Approach (ICD-10-PCS; 2016-12-27)
DX: N20.1 Calculus of ureter (principal); N15.1 Renal and perinephric abscess; N13.8 Other obstructive and reflux uropathy; E87.6 Hypokalemia; Z87.440 Personal history of urinary (tract) infections; Z87.442 Personal history of urinary calculi
CPT/HCPCS: 82365-90; 82947-QW; C1726; C1751; C1758; C1769; C2625; J0696; J1100; J1170; J1885; J2250; J2370; J2405; J2704; J3010; Q9966; Q9967

== ENCOUNTER → 2017-05-28 | Outpatient (CLI) | payer OTHER | LOC: FIMAGING 10:31 | PROVIDERS: ATTEND Internal Medicine Infectious Disease | DX: K59.00 Constipation, unspecified (principal) ==